=== PATIENT | male | born 1980 | race Hispanic/Latino ===

== ENCOUNTER 2017-10-07 15:25 | Inpatient (IN) | payer OTHER ==
[2017-10-07] MEDS ORDERED: ASPIRIN PO ONE (15:44)
[2017-10-07 16:35] LABS: Basophils % (Auto) 0.3 % (0.0-1.8); Eosinophils # (Auto) 0.2 K/mm3 (0.0-0.4); Eosinophils % (Auto) 1.9 % (0.0-4.3); Hemoglobin 15.4 gm/dl (11.8-15.2); Lymphocytes # (Auto) 2.9 K/mm3 (1.2-5.4); Lymphocytes % (Auto) 26.5 % (13.4-35.0); Mean Corpuscular HGB Conc 34 % (32-34); Mean Corpuscular Hemoglobin 29 pg (28-32); Mean Corpuscular Volume 87 fl (84-94); Monocytes # (Auto) 1.3 K/mm3 (0.0-0.8); Monocytes % (Auto) 11.9 % (0.0-7.3); Platelet Count 218 K/mm3 (140-440); Red Blood Count 5.31 M/mm3 (3.65-5.03); Red Cell Distribution Width 14.2 % (13.2-15.2)
[2017-10-07 17:07] LABS: BUN/Creatinine Ratio 17; Blood Urea Nitrogen 15 mg/dL (9-20); Calcium 8.9 mg/dL (8.4-10.2); Hemolysis Index 13
[2017-10-08] MEDS ORDERED: CATAPRES PO ONE (03:31)
[2017-10-08] MEDS ORDERED: NITRO-BID 2% TP ONE (03:31)
--- NOTE | 2017-10-08 03:56 | XRay Report ---
FINAL REPORT EXAM: XR CHEST ROUTINE 2V HISTORY: cough TECHNIQUE: PA and lateral views of the chest were submitted. FINDINGS: The heart size and mediastinum appear normal. The lungs are clear. Pleural fluid is not seen. The bones and soft tissues are unremarkable. IMPRESSION: No active chest disease.
[2017-10-08] MEDS ORDERED: ASPIRIN ONE (04:06)
--- NOTE | 2017-10-08 04:58 | Emergency Department Report ---
ED Chest Pain HPI - General Chief Complaint: Chest Pain Stated Complaint: HYPERTENSION AND CP Time Seen by Provider: 10/08/17 03:30 Source: patient Mode of arrival: Ambulatory Limitations: No Limitations - History of Present Illness Initial Comments: Patient is a 37-year-old male who is presenting with chest discomfort. Patient states for the past 3 weeks he has been having some left- sided chest pain. Pain is pressure with shortness of breath. Patient states that it is worse with exertion when he walks. 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 Patient's blood pressure was 190 systolic before arrival. Patient states that at baseline today he does still have some mild 2 out of 10 chest discomfort there is no pleuritic chest pain there's no fevers chills cough and body aches and nausea vomiting at this time. Patient besides the elevated blood pressure did not have any additional risk factors for coronary disease except for smoking Severity scale (0 -10): 7 - Related Data Allergies Allergy/AdvReac Type Severity Reaction Status Date / Time No Known Allergies Allergy Verified 10/08/17 04:02 Heart Score - HEART Score History: Highly suspicious EKG: Normal Age: < 45 Risk factors: 1-2 risk factors Troponin: < normal limit HEART Score: 3 ED Review of Systems ROS: Stated complaint: HYPERTENSION AND CP Other details as noted in HPI Comment: All other systems reviewed and negative ED Past Medical Hx - Past Medical History Previous Medical History?: Yes - Social History Smoking Status: Current Every Day Smoker Substance Use Type: Alcohol ED Physical Exam - General Limitations: No Limitations General appearance: alert, in no apparent distress - Head Head exam: Present: atraumatic, normocephalic - Eye Eye exam: Present: normal appearance - ENT ENT exam: Present: mucous membranes moist - Neck Neck exam: Present: normal inspection - Respiratory Respiratory exam: Present: normal lung sounds bilaterally. Absent: respiratory distress - Cardiovascular Cardiovascular Exam: Present: regular rate, normal rhythm. Absent: systolic murmur, diastolic murmur, rubs, gallop - GI/Abdominal GI/Abdominal exam: Present: soft, normal bowel sounds - Rectal Rectal exam: Present: deferred - Extremities Exam Extremities exam: Present: normal inspection - Back Exam Back exam: Present: normal inspection - Neurological Exam Neurological exam: Present: alert, oriented X3 - Psychiatric Psychiatric exam: Present: normal affect, normal mood - Skin Skin exam: Present: warm, dry, intact, normal color. Absent: rash ED Course Vital Signs 10/07/17 10/08/17 10/08/17 15:40 03:08 03:16 Temperature 98.6 F Pulse Rate 89 86 79 Respiratory 18 30 H 15 Rate Blood Pressure 193/119 177/111 Blood Pressure [Left] O2 Sat by Pulse 100 96 Oximetry 10/08/17 10/08/17 10/08/17 03:20 03:30 04:00 Temperature 97.9 F Pulse Rate 77 77 Respiratory 16 15 Rate Blood Pressure 153/104 153/104 Blood Pressure 177/111 [Left] O2 Sat by Pulse 98 97 Oximetry 10/08/17 10/08/17 10/08/17 04:10 04:16 04:30 Temperature Pulse Rate 85 94 H 83 Respiratory 20 14 Rate Blood Pressure 173/95 173/95 166/121 Blood Pressure [Left] O2 Sat by Pulse 96 96 Oximetry 10/08/17 10/08/17 04:46 05:00 Temperature Pulse Rate 92 H 87 Respiratory 24 21 Rate Blood Pressure 166/121 149/95 Blood Pressure [Left] O2 Sat by Pulse 95 Oximetry POP score - Pop Score Age > 65: (0) No Aspirin use within the Past 7 Days: (1) Yes 3 or more CAD Risk Factors: (0) No 2 or more Angina events in past 24 hrs: (1) Yes Known CAD with more than 50% Stenosis: (0) No Elevated Cardiac Markers: (0) No ST Deviation Greater than 0.5mm: (0) No POP Score: 2 ED Medical Decision Making - Lab Data Result diagrams: 10/07/17 16:15 10/07/17 16:15 - EKG Data -: EKG Interpreted by Oh - EKG Data Interpretation: other (with a rate of [address] elevation or depressions axis is normal intervals normal time of interpretation 1544. A repeat EKG done at 0305 shows similar) - Medical Decision Making Patient is a 37-year-old male whose presenting with hypertension and chest pain. Patient says several negative troponins and is not having an MA at this time. Patient blood pressures in the 160s time of admission. Patient does state that he does feel is that he can breathe better after the nitroglycerin placedand given Catapres. Patient be admitted to the hospitalist service for a possible stress test Critical Care Time: Yes Critical care time in (mins) excluding proc time.: 30 Critical care attestation.: If time is entered above; I have spent that time in minutes in the direct care of this critically ill patient, excluding procedure time. ED Disposition Clinical Impression: Angina effort Hypertension Qualifiers: Hypertension type: essential hypertension Qualified Code(s): I10 - Essential ( primary) hypertension Disposition: OP ADMIT IP TO THIS HOSP Is pt being admited?: Yes Does the pt Need Aspirin: No Condition: Serious Instructions: Hypertension (ED), Angina (ED)
[2017-10-08] MEDS ORDERED: LEXISCAN IV ONE (08:41)
--- NOTE | 2017-10-08 10:19 | Consultation ---
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 He aslo experienced left lateral chest discomfort and headache. Hence, he presented to the ER. This morning, he underwent a lexiscan stress MPI which suggested minimal to mild ischemia. Past History Past Medical History: hypertension Past Surgical History: Other (Colonic polypectomy) Social history: single, smoking Family history: CAD Medications and Allergies Allergies Allergy/AdvReac Type Severity Reaction Status Date / Time No Known Allergies Allergy Verified 10/08/17 04:02 Home Medications Medication Instructions Recorded Confirmed Last Taken Type No Known Home Medications [No 10/08/17 10/08/17 Unknown History Reported Home Medications] Review of Systems Constitutional: no fever, no chills Ears, nose, mouth and throat: no ear pain, no ear discharge, no sore throat Cardiovascular: chest pain, no lightheadedness, no shortness of breath Respiratory: no cough, no hemoptysis, no shortness of breath Gastrointestinal: no nausea, no vomiting, no diarrhea, no constipation, no change in bowel habits Rectal: no pain, no bleeding Musculoskeletal: no neck stiffness, no neck pain, no myalgias Integumentary: no rash, no pruritis Neurological: no weakness, no parathesias, no numbness, no tingling, no headaches Endocrine: no cold intolerance, no heat intolerance Hematologic/Lymphatic: no easy bruising, no easy bleeding Allergic/Immunologic: no urticaria, no wheezing Physical Examination Vital Signs Last Vital Signs Temp 97.7 F 10/08/17 08:55 Pulse 86 10/08/17 09:37 Resp 16 10/08/17 08:55 BP 149/93 10/08/17 09:37 Pulse Ox 99 10/08/17 08:55 General appearance: no acute distress HEENT: Positive: EOMI, Normocephaly, Mucus Membranes Moist Neck: Positive: neck supple, trachea midline Cardiac: Positive: Reg Rate and Rhythm, S1/S2 Lungs: Positive: clear to auscultation Neuro: Positive: Grossly Intact Abdomen: Positive: Soft, Active Bowel Sounds. Negative: Tender Skin: Positive: Clear. Negative: Rash Musculoskeletal: Normal Range of Motion Extremities: Present: normal. Absent: edema Results 10/07/17 16:15 10/07/17 16:15 CBC 10/07/17 Range/Units 16:15 WBC 11.1 H (4.5-11.0) K/mm3 RBC 5.31 H (3.65-5.03) M/mm3 Hgb 15.4 H (11.8-15.2) gm/dl Hct 46.0 H (35.5-45.6) % Plt Count 218 (140-440) K/mm3 Lymph # 2.9 (1.2-5.4) K/mm3 [place] # 1.3 H (0.0-0.8) K/mm3 Eos # 0.2 (0.0-0.4) K/mm3 Baso # 0.0 (0.0-0.1) K/mm3 Comprehensive Metabolic Panel 10/07/17 Range/Units 16:15 Sodium 141 (137-145) mmol/L Potassium 4.3 (3.6-5.0) mmol/L Chloride 101.8 (98-107) mmol/L Carbon Dioxide 27 (22-30) mmol/L BUN 15 (9-20) mg/dL Creatinine 0.9 (0.8-1.5) mg/dL Glucose 86 (75-100) mg/dL Calcium 8.9 (8.4-10.2) mg/dL - Imaging and Cardiology EKG: image reviewed EKG interpretations - Telemetry EKG Rhythm: Sinus Rhythm - EKG Sinus rhythms and dysrhythmias: sinus rhythm AV and intraventricular conduction: right bundle branch block Assessment and Plan Initiate metoprolol for BP control. Optimize BP regimen. With only minimal to mild ishemia on stress test, will manage medically. If he has no more CP, he may be discharged to f/u at my office in 1-2 weeks. - Patient Problems (1) Atypical chest pain Current Visit: Yes Status: Acute (2) Accelerated hypertension Current Visit: Yes Status: Acute (3) Tobacco abuse Current Visit: Yes Status: Acute
--- NOTE | 2017-10-08 11:08 | History and Physical Report ---
History of Present Illness Date of examination: 10/08/17 Date of admission: 10/08/17 08:17 Chief complaint: Elevated BP Chest discomfort Past History Past Medical History: hypertension, hyperlipidemia Past Surgical History: Other (Colonic polypectomy) Social history: single, smoking Family history: CAD Medications and Allergies Allergies Allergy/AdvReac Type Severity Reaction Status Date / Time No Known Allergies Allergy Verified 10/08/17 04:02 Home Medications Medication Instructions Recorded Confirmed Last Taken Type No Known Home Medications [No 10/08/17 10/08/17 Unknown History Reported Home Medications] Active Meds: Active Medications Aspirin (Aspirin) 81 mg PO QDAY GARO Metoprolol Tartrate (Lopressor) 50 mg PO BID GARO Exam - Constitutional Vitals: Temp Pulse Resp BP Pulse Ox 97.7 F 86 16 149/93 99 10/08/17 08:55 10/08/17 09:37 10/08/17 08:55 10/08/17 09:37 10/08/17 08:55 Results - Labs CBC & Chem 7: 10/07/17 16:15 10/07/17 16:15 Labs: Abnormal lab results 10/07/17 Range/Units 16:15 WBC 11.1 H (4.5-11.0) K/mm3 RBC 5.31 H (3.65-5.03) M/mm3 Hgb 15.4 H (11.8-15.2) gm/dl Hct 46.0 H (35.5-45.6) % Green % (Auto) 11.9 H (0.0-7.3) % Green # 1.3 H (0.0-0.8) K/mm3 Assessment and Plan Chest pain Hypertensive urgency Anxiety
[2017-10-08] MEDS ORDERED: NORVASC PO SCH (12:00)
[2017-10-08 13:22] VITALS: BP 144/94
--- NOTE | 2017-10-08 14:05 | Discharge Summary ---
Providers - Providers Date of Admission: 10/08/17 08:17 Date of discharge: 10/08/17 Attending physician: TAO PAREDES Primary care physician: TAO JARVIS Hospitalization Condition: Fair Disposition: DC-01 TO HOME OR SELFCARE Exam - Constitutional Vitals: Temp Pulse Resp BP Pulse Ox 97.7 F 86 16 144/94 99 10/08/17 08:55 10/08/17 12:29 10/08/17 08:55 10/08/17 13:22 10/08/17 08:55 Plan Activity: no restrictions Diet: low fat, low cholesterol, low salt Additional Instructions: 1.Follow up with PCP or [facility] in 1 week. 2.Follow up with Dr. Segura in 1 week Prescriptions: Metoprolol [Lopressor TAB] 50 mg PO BID #60 tablet
[2017-10-08] MEDS ORDERED: LOPRESSOR PO SCH (22:00)
--- NOTE | 2017-10-09 00:15 | Treadmill Report ---
PROCEDURE: Lexiscan stress test. REASON FOR STUDY: Chest pain. STRESS TEST PROTOCOL: The patient received 0.4 mg of Lexiscan intravenously over 10 seconds. Technetium-99m tetrofosmin was subsequently injected. Baseline EKG, normal sinus rhythm. Lexiscan EKG, no diagnostic ischemic changes. No chest pain. No arrhythmias. IMPRESSION: Electrocardiographically negative stress test. Nuclear imaging report to follow. JOB# [id number] ABRAHAM/NTS
[2017-10-09] MEDS ORDERED: ASPIRIN PO SCH (10:00)
--- NOTE | 2017-10-09 23:15 | Treadmill Report ---
THALLIUM REPORT REASON FOR THALLIUM STRESS TEST: Chest pain. IMAGING PROTOCOL: The patient received 10 mCi of Tc-99m Tetrofosmin for rest imaging, and 28 mCi of Tc-99m Tetrofosmin for stress imaging. IMAGING PROTOCOL: The patient received 4 mCi of Thallium 201 for rest imaging and 26 mCi of technetium-99 Tetrofosmin for stress imaging. Imaging for all procedures was completed 30-90 minutes following the initial injection of Technetium 99m Tetrofosmin. SPECT imaging in the 180 degree arc was performed in the right anterior oblique projection. Computerized reconstruction of the images was performed for analysis. NUCLEAR IMAGING RESULTS: Technically limited study due to soft tissue attenuation artifact. Normal left ventricular cavity size with no change from stress to rest. Distribution of radionuclide within the left ventricle revealed a small area of photo-induction involving the anterior wall. The degree of photo-induction is moderate. Rest imaging showed partial improvement in this defect. In addition, there is a medium size area of photo-induction involving the inferior wall. The degree of photo-induction is moderate. Rest imaging showed only minimal improvement in this defect. Gated SPECT imaging revealed normal global LV systolic function with no significant wall motion abnormalities. The calculated left ventricular ejection fraction is 64%. IMPRESSION: Technically limited study. Small, partially reversible anterior wall defect. Medium size, predominantly fixed, minimally reversible inferior wall defect. Normal global LV systolic function with no significant wall motion abnormalities. EF 64%. These findings suggest a small area of prior infarction with minimal to mild residual ischemia in the left anterior descending coronary artery territory. In addition, there is suggestion of prior infarction with minimal residual ischemia in the right coronary artery territory. Over all, in the absence of significant wall motion abnormalities, the defects noted in this patient may be partly artifactual. JOB# [id number] ABRAHAM/ROSEANN
== END 2017-10-08 14:00 | disposition home or self-care (01) | DRG 313 ==
LOC: ED 15:25 → 4A 10-08 08:17
PROVIDERS: ADMIT Internal Medicine; ATTEND Internal Medicine
DX: R07.89 Other chest pain (principal); F17.200 Nicotine dependence, unspecified, uncomplicated; I10 Essential (primary) hypertension; Z60.2 Problems related to living alone; I16.0 Hypertensive urgency; F41.9 Anxiety disorder, unspecified; Z72.89 Other problems related to lifestyle; Z82.49 Family history of ischemic heart disease and other diseases of the circulatory system
CPT/HCPCS: 36415; 71046; 78452; 80048; 84484; 85025; 93005; 93010; 93017; 99291; A9502; J2785